=== PATIENT | female | born 1945 | race Caucasian/White ===

== ENCOUNTER 2018-03-21 17:18 | Emergency (ER) | payer MEDICARE, MEDICAID ==
--- NOTE | 2018-03-21 19:47 | ER Document Report ---
ED Medical Screen (RME) - General Chief Complaint: Leg Pain Stated Complaint: KNEE/LEG PAIN Time Seen by Provider: 03/21/18 19:39 Primary Care Provider: ELISSA PRINGLE [Primary Care Provider] - Follow up as needed Notes: 72-year-old female with chief complaint of pain and some swelling to the left knee and proximal leg for the past week. She has some pain to walk on the leg. Seen by primary care, she has been trying anti-inflammatories with some relief but no significant improvement. She reports family history of blood clots but no personal history of blood clots. Denies recent injury, travel, surgery. She has had problems with the same knee in the past. - Related Data Allergies/Adverse Reactions: Sulfa (Sulfonamide Antibiotics) Allergy (Verified 03/21/18 17:22) Past Medical History - Past Medical History Cardiac Medical History: Reports: Hx Hypercholesterolemia, Hx Hypertension Endocrine Medical History: Reports: Hx Diabetes Mellitus Type 2 Past Surgical History: Reports: Hx Breast Surgery - Immunizations Hx Diphtheria, Pertussis, Tetanus Vaccination: Yes Physical Exam - Vital signs Vitals: Temp Pulse Resp BP Pulse Ox 98.5 F 74 16 148/67 H 98 03/21/18 17:34 03/21/18 17:34 03/21/18 17:34 03/21/18 17:34 03/21/18 17:34 - Extremities General lower extremity: Other - Minimal swelling just below the knee and above the knee in the left lower extremity, some pain just above the knee noted. No erythema, severe tenderness, severe swelling. Normal distal neurovascular exam. Unremarkable examination otherwise. Course - Re-evaluation Re-evalutation: Discussed with patient. More likely symptoms secondary to arthritis of the knee, however because of family history and persistent symptoms venous Doppler ultrasound will be performed to rule out blood clot. I have greeted and performed a rapid initial assessment of this patient. A comprehensive ED assessment and evaluation of the patient, analysis of test results and completion of the medical decision making process will be conducted by additional ED providers. - Vital Signs Vital signs: Temp Pulse Resp BP Pulse Ox 98.5 F 74 16 148/67 H 98 03/21/18 17:34 03/21/18 17:34 03/21/18 17:34 03/21/18 17:34 03/21/18 17:34 Doctor's Discharge - Discharge Referrals: LOCALMD,NO [Primary Care Provider] - Follow up as needed
--- NOTE | 2018-03-21 20:55 | RADIOLOGY REPORT (SQ) ---
EXAM DESCRIPTION: XR KNEE 4 OR MORE VIEWS COMPLETED DATE/TME: 03/21/2018 19:44 CLINICAL HISTORY: 72 years, Female, left knee pain COMPARISON: None. NUMBER OF VIEWS: 4 TECHNIQUE: 4 view left knee LIMITATIONS: None. FINDINGS: Negative for fracture or dislocation. Vascular calcifications. Degenerative changes of the patellofemoral compartment. Prominent spur of the superior patellar facet. IMPRESSION: No acute osseous abnormality. Chronic changes patellofemoral compartment copyright 2010 [email or web address]- All Rights Reserved
[2018-03-21] MEDS ORDERED: HYDROCODONE/ACETAMINOPHEN 5-325 MG (6 TAB/ER DISP) PO PRN (21:11)
[2018-03-21 21:14] VITALS: BP 156/60
--- NOTE | 2018-03-21 21:15 | ER Document Report ---
ED Extremity Problem, Lower - General Chief Complaint: Leg Pain Stated Complaint: KNEE/LEG PAIN Time Seen by Provider: 03/21/18 19:39 Primary Care Provider: SHIKHA BAKER MD [ACTIVE STAFF] - Follow up as needed Notes: 72-year-old female with chief complaint of pain and some swelling to the left knee and proximal leg for the past week. She has some pain to walk on the leg. Seen by primary care, she has been trying anti-inflammatories with some relief but no significant improvement. She reports family history of blood clots but no personal history of blood clots. Denies recent injury, travel, surgery. She has had problems with the same knee in the past. - Related Data Allergies/Adverse Reactions: Sulfa (Sulfonamide Antibiotics) Allergy (Verified 03/21/18 17:22) Past Medical History - General Information source: Patient - Social History Smoking Status: Never Smoker Chew tobacco use (# tins/day): No Frequency of alcohol use: None Drug Abuse: None Lives with: Family Family History: Reviewed & Not Pertinent Patient has suicidal ideation: No Patient has homicidal ideation: No - Past Medical History Cardiac Medical History: Reports: Hx Hypercholesterolemia, Hx Hypertension Endocrine Medical History: Reports: Hx Diabetes Mellitus Type 2 Renal/ Medical History: Denies: Hx Peritoneal Dialysis Past Surgical History: Reports: Hx Breast Surgery - Immunizations Hx Diphtheria, Pertussis, Tetanus Vaccination: Yes Review of Systems - Review of Systems Constitutional: No symptoms reported EENT: No symptoms reported Cardiovascular: No symptoms reported Respiratory: No symptoms reported Gastrointestinal: No symptoms reported Genitourinary: No symptoms reported Female Genitourinary: No symptoms reported Musculoskeletal: See HPI Skin: No symptoms reported Hematologic/Lymphatic: See HPI Neurological/Psychological: No symptoms reported Physical Exam - Vital signs Vitals: Temp Pulse Resp BP Pulse Ox 98.5 F 74 16 148/67 H 98 03/21/18 17:34 03/21/18 17:34 03/21/18 17:34 03/21/18 17:34 03/21/18 17:34 - Notes Notes: GENERAL: Alert, interacts well. No acute distress. HEAD: Normocephalic, atraumatic. EYES: Pupils equal, round, and reactive to light. Extraocular movements intact. ENT: Oral mucosa moist, tongue midline. Oropharynx unremarkable. Airway patent. Nares patent, no nasal septal hematoma, TM's intact. NECK: Full range of motion. Supple. Trachea midline. LUNGS: Clear to auscultation bilaterally, no wheezes, rales, or rhonchi. No respiratory distress. HEART: Regular rate and rhythm. No murmur ABDOMEN: Soft, non-tender. Non-distended. Bowel sounds present in all 4 quadrants. GENITOURINARY: Deferred EXTREMITIES: Mild pain with palpation just superior to the patella at the left knee, no overt swelling noted, mild pain with palpation over the mid to distal anterior thigh as well. Some grinding with range of motion performed at the knee. Range of motion is intact. No erythema, abnormal heat, normal distal neurovascular exam, normal extremity exams otherwise. BACK: no cervical, thoracic, lumbar midline tenderness. No saddle anesthesia, normal distal neurovascular exam. NEUROLOGICAL: Alert and oriented x3. Normal speech. [cranial nerves II through XII grossly intact]. PSYCH: Normal affect, normal mood. SKIN: Warm, dry, normal turgor. No rashes or lesions noted. Course - Re-evaluation Re-evalutation: Initial report for venous Doppler is negative. X-ray of the knee showing degenerative change at the patella with spurring. Suspect patient's pain is from degenerative changes. Discussed anti-inflammatory use which she is already on, patient requests orthopedic referral and short-term pain management because at night she cannot sleep because the pain gets bad. She states she will only use this if absolutely needed. She was provided with a few with instructions and precautions in regards to this. Daughter at bedside. Discussed return precautions in detail. Patient and daughter state understanding and agreement. - Vital Signs Vital signs: Temp Pulse Resp BP Pulse Ox 98.0 F 63 16 156/60 H 97 03/21/18 21:13 03/21/18 21:13 03/21/18 21:13 03/21/18 21:13 03/21/18 21:13 Discharge - Discharge Clinical Impression: Left leg pain Left knee pain Qualifiers: Chronicity: acute Qualified Code(s): M25.562 - Pain in left knee Condition: Stable Disposition: HOME, SELF-CARE Additional Instructions: You have degenerative changes in your knee and also spurring at the patella. This is probably the cause of your inflammation and pain. No blood clot is seen on the ultrasound. Continue anti-inflammatories, ice the area 3-4 times a day, follow-up with the orthopedic referral or orthopedic of your choice for additional management. Only take the pain medication if needed, if you do take it also take a stool softener to avoid constipation. Return if you worsen including severe swelling, developing redness, fever, or any other concerning or worsening symptoms. Prescriptions: Docusate Sodium [Colace 100 mg Capsule] 100 mg PO ASDIR PRN #30 capsule PRN Reason: Hydrocodone/Acetaminophen [Sciota 5-325 mg Tablet] 0.5 - 1 tab PO ASDIR #10 tablet Referrals: SHIKHA BAKER MD [ACTIVE STAFF] - Follow up as needed
--- NOTE | 2018-03-22 02:42 | RADIOLOGY REPORT (SQ) ---
EXAM DESCRIPTION: US EXTREMITY VEINS UNILATERAL COMPLETED DATE/TME: 03/21/2018 19:44 CLINICAL HISTORY: 72 years, Female, left leg pain/swelling COMPARISON: None. TECHNIQUE: Transverse and longitudinal sonographic images of the left lower extremity deep venous system. Doppler and spectral analysis with color flow was utilized. LIMITATIONS: None. FINDINGS: No visible areas of thrombus formation. Normal compression and augmentation throughout. Doppler and spectral analysis with color-flow shows normal waveforms. IMPRESSION: Negative exam copyright 2010 [email or web address]- All Rights Reserved
== END 2018-03-21 21:33 | disposition home or self-care (01) ==
LOC: ER 17:18
DX: M79.605 Pain in left leg (principal); M25.562 Pain in left knee; I10 Essential (primary) hypertension; E11.9 Type 2 diabetes mellitus without complications
CPT/HCPCS: 99283; 93971; 73564; A9270

== ENCOUNTER 2019-10-15 07:03 | Day surgery (SDC) | payer MEDICARE, MEDICAID ==
[~2019-10-15 07:03] MED LIST: KETOROLAC TROMETHAMINE 0.45% 4 DROP/0.4 ML DROPERETTE OS PRN
[2019-10-15] MEDS: BESIFLOXACIN HCL 0.6% OPH SUSP 5 ML BOTTLE OS PRN ×4 (08:04→08:59)
[2019-10-15] MEDS: CYCLOPENTOLATE 0.2%/PHENYLEPHRINE 1% OPH SOLN 2 ML OS PRN ×3 (08:04→08:24)
[2019-10-15] MEDS: TROPICAMIDE 1% OPH SOLN 15 ML OS PRN ×3 (08:04→08:24)
[2019-10-15] MEDS: TETRACAINE HCL 0.5% OPH SOLN 4 ML OS PRN ×4 (08:05→08:39)
[2019-10-15] MEDS ORDERED: MIDAZOLAM 2 MG/2 ML INJ ONE (08:21)
[2019-10-15] MEDS ORDERED: FENTANYL CITRATE INJ/PF 100 MCG/2 ML AMPUL ONE (08:21)
[2019-10-15] MEDS: LIDOCAINE 1%/PHENYLEPHRINE 1.5% 0.8 ML SYRINGE ONE ×2 (08:47)
[2019-10-15] MEDS: CHONDR SU A NA/HYALUR INTRAOC KIT (SURGICARE) ONE ×2 (08:47)
[2019-10-15] MEDS: EPINEPHRINE INJ/PF 1 MG/1 ML AMPULE ONE ×2 (08:47)
[2019-10-15] MEDS: DORZOLAMIDE HCL 2%/TIMOLOL MALEAT 0.5% OPH SOLN 10 ML OS PRN ×2 (08:59)
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
== END 2019-10-15 09:34 | disposition home or self-care (01) ==
LOC: SC 07:03
PROVIDERS: ATTEND Internal Medicine
DX: H25.813 Combined forms of age-related cataract, bilateral (principal); H43.813 Vitreous degeneration, bilateral; H04.123 Dry eye syndrome of bilateral lacrimal glands; E11.9 Type 2 diabetes mellitus without complications; I10 Essential (primary) hypertension; E78.00 Pure hypercholesterolemia, unspecified; Z88.2 Allergy status to sulfonamides; Z79.899 Other long term (current) drug therapy; Z91.040 Latex allergy status
CPT/HCPCS: 66984; 82962; 00142; V2632; J2250; J3490 ×3; A9270; J0171; J3010; 142

== ENCOUNTER 2019-11-05 08:04 | Day surgery (SDC) | payer MEDICARE, MEDICAID ==
[~2019-11-05 08:04] MED LIST changes: +KETOROLAC TROMETHAMINE 0.45% 4 DROP/0.4 ML DROPERETTE OD PRN; -KETOROLAC TROMETHAMINE 0.45% 4 DROP/0.4 ML DROPERETTE OS PRN
[2019-11-05] MEDS: BESIFLOXACIN HCL 0.6% OPH SUSP 5 ML BOTTLE OD PRN ×4 (08:27→09:14)
[2019-11-05] MEDS: TROPICAMIDE 1% OPH SOLN 15 ML OD PRN ×3 (08:27→08:38)
[2019-11-05] MEDS: CYCLOPENTOLATE 0.2%/PHENYLEPHRINE 1% OPH SOLN 2 ML OD PRN ×3 (08:27→08:38)
[2019-11-05] MEDS: TETRACAINE HCL 0.5% OPH SOLN 4 ML OD PRN ×4 (08:27→08:55)
[2019-11-05] MEDS ORDERED: MIDAZOLAM 2 MG/2 ML INJ ONE ×2 (08:40→08:53)
[2019-11-05] MEDS ORDERED: FENTANYL CITRATE INJ/PF 100 MCG/2 ML AMPUL ONE (08:40)
[2019-11-05] MEDS: EPINEPHRINE INJ/PF 1 MG/1 ML AMPULE ONE ×2 (09:02)
[2019-11-05] MEDS: LIDOCAINE 1%/PHENYLEPHRINE 1.5% 0.8 ML SYRINGE ONE ×2 (09:02)
[2019-11-05] MEDS: CHONDR SU A NA/HYALUR INTRAOC KIT (SURGICARE) ONE ×2 (09:02)
[2019-11-05] MEDS: PREDNISOLONE ACETATE 1% OPH SUSP 5 ML OD PRN ×2 (09:14)
[2019-11-05] MEDS: DORZOLAMIDE HCL 2%/TIMOLOL MALEAT 0.5% OPH SOLN 10 ML OD PRN ×2 (09:14)
--- NOTE | 2019-11-05 14:23 | Operative Report ---
Operative Report-[facility] Operative Report: DATE OF SURGERY: 11/05/2019 PREOPERATIVE DIAGNOSIS: Cataract, right eye POSTOPERATIVE DIAGNOSIS: Cataract, right eye OPERATION: Cataract extraction with insertion of an IOL of the right eye. Intraocular Lens Model: [22.5 diopter SN 60 WF] Patient underwent surgery for difficulty seeing small print SURGEON: Parker Lopez MD ANESTHESIA: Topical PROCEDURE: After obtaining appropriate consent, the patient's right eye was prepped and draped in a sterile fashion as well as the surgeon in the sterile manner and cataract surgery was started. First a paracentesis blade was used to make a side-port incision. Viscoelastic was used to inflate the anterior chamber. Next a 2.4 mm incision was made with a 2.4 mm blade, clear corneal temporarily. A continuous capsulorrhexis was made using a cystotome and Utrata forceps. Following this hydrodissection was carried out to make the leelee fully loose and mobile and it was rotated. Following this, a divide and conquer technique was used to phacoemulsify the leelee. The remaining cortex was removed with an irrigation/aspiration. Provisc was instilled into the capsular bag to inflate the bag. The intraocular lens was placed. The remaining viscoelastic material was removed with irrigation/aspiration. Following this, the incision was found to be watertight. Besivance and Cosopt was instilled into the eye and a protective shield was placed over the eye. The patient was reurned to the postoperative recovery in a stable condition.
== END 2019-11-05 09:47 | disposition home or self-care (01) ==
LOC: SC 08:04
PROVIDERS: ATTEND Internal Medicine
DX: H25.811 Combined forms of age-related cataract, right eye (principal); Z96.1 Presence of intraocular lens; E11.9 Type 2 diabetes mellitus without complications; I10 Essential (primary) hypertension; E78.00 Pure hypercholesterolemia, unspecified; Z79.899 Other long term (current) drug therapy; Z79.82 Long term (current) use of aspirin; Z79.84 Long term (current) use of oral hypoglycemic drugs
CPT/HCPCS: 82962; 00142; 66984; V2632; J2250; J3490 ×3; A9270; J0171; J3010; 142